=== PATIENT | female | born 1970 | race Caucasian/White ===

== ENCOUNTER 2016-07-07 05:32 | Day surgery (SDC) | payer OTHER ==
[~2016-07-07] VITALS: Ht 160 cm; Wt 94.6 kg
[2016-07-07] VITALS (7 sets, daily range): BP systolic 132–140; BP diastolic 74–90; PULSE 78–103; RESP 14–17; O2SAT 97–100
[~2016-07-07 05:32] MED LIST: ALPR0.5T8 PO; BUPR150T9 PO; METO50TA7 PO
[2016-07-07] MEDS ORDERED: EPHEDrine/NS 5 mg/mL 5 mL Syringe ONE (05:33)
[2016-07-07] MEDS ORDERED: Succinylcholine Chloride 20 mg/mL 5 mL Inj ONE (05:33)
[2016-07-07] MEDS ORDERED: Rocuronium 10 mg/mL 5 mL Inj ONE (05:33)
[2016-07-07] MEDS ORDERED: Propofol 10,000 mCg/mL 20 mL Inj ONE (05:33)
[2016-07-07] MEDS ORDERED: Lidocaine PF 1% 30 mL Inj ONE (05:33)
[2016-07-07] MEDS ORDERED: Dexamethasone 4 mg/mL Inj ONE (05:33)
[2016-07-07] MEDS ORDERED: Ondansetron 2 mg/mL 2 mL Inj ONE (05:33)
[2016-07-07] MEDS ORDERED: fentaNYL-PF 50 mCg/mL 2 mL Inj ONE (05:33)
[2016-07-07] MEDS: Lactated Ringer's 1,000 ML IV SCH ×2 (05:37→07:24)
[2016-07-07 06:32] LABS: BASOPHILS % (AUTO) 0.6 % (0-3); EOSINOPHILS % (AUTO) 3.3 % (0-5); MONOCYTES % (AUTO) 9.1 % (4-12); Mean Corpuscular Hemoglobin 28.9 pg (27.0-35.0); Mean Corpuscular Volume 88.8 fL (81-100); NEUTROPHILS % (AUTO) 52.7 % (40-74); Platelet Count 363 bil/L (150-400)
[2016-07-07] MEDS ORDERED: Bupivacaine-MPF 0.5% W/EPI 30 mL Inj INFILTRATE ONE (08:01)
--- NOTE | 2016-07-07 08:14 | PCM.HPANE ---
Patient Data Surgeon Admitting Provider: Attending Provider:Lyn Beckham MD Primary Care Physician:Rosa Boogie Other Provider:Hola Cotto Anesthesia Reason for Visit Family Planning Ht/WT & BMI Height (Feet): 5 Height (Inches): 3.00 Weight (Kilograms): 94.6 Body Mass Index 36.00 Allergies Coded Allergies: No Known Allergies (Unverified , 07/06/16) Past Anesthesia History Anesthesia History: Denies:: Abnormal Airway, Anesthesia Reactions, Difficult Intubation, Fam Anesthesia Reaction Diabetes History Hx Diabetes?: Yes MRSA MRSA: Yes (many years ago) Medications Hypertension Medication: Yes Home Meds Incl Beta Mita: Yes (metopropol 50mg) Date Beta Mita Taken: Jul 07, 2016 Time Beta Mita Taken: 0500 Reported Medications Bupropion HCl (Zyban)150 Mg Tablet.er150 Mg PO BID 07/06/16 Alprazolam 0.5 Mg Tablet0.5 Mg PO TID PRN For Anxiety Ref 0 07/06/16 Metoprolol Succinate ER (Toprol XL)50 Mg Pkgiig80 Mg PO DAILY Ref 0 07/06/16 History HEENT History: Denies:: Abnormal Airway Cataracts Difficult Intubation Dysphagia Glaucoma Hearing Problem Sinus Problem TMJ Cardiovascular History: Positive for:: Heart Murmur (since childhood) Hypertension Denies:: AICD Abdominal Aortic Aneurism Atrial Fibrillation Chest Pain Congestive Heart Failure Coronary Artery Disease Edema Pacemaker Peripheral Vascular Rheumatic Fever Thrombophlebitis Valvular Heart Disease Hx of Respiratory Problem?: No Respiratory History: Denies:: Asthma COPD Emphysema Oxygen Administration Pneumonia Tuberculosis Use of C-PAP Machine Hx Neurologic Problems?: No Neurological History: Denies:: Alzheimer's Disease CVA Dizziness Headaches Multiple Sclerosis Parkinson's Disease Seizures TIA Hx of GI Problems?: Yes Gastrointestinal History: Positive for:: Gall Bladder Disease (removed) Denies:: Cirrhosis Gastroesphageal Reflux Gastrointestinal Bleeding Heartburn Hepatitis Hiatal Hernia Liver Disease Hx of Problems?: No Genitourinary History: Denies:: Kidney Stones Urinary Tract Infection Female Hx: Denies:: Currently Problems with Breasts? Skin History: Denies:: History Skin Disorders? Pressure Ulcers Musculoskeletal History: Positive for:: Back Injury Denies:: Fibromyalgia Joint Replacement Musculoskeletal Trauma Myasthenia Gravis Osteoarthritis Rheumatoid Arthritis Hx of Psycho/Social Problems?: Yes Psycho Social History: Positive for:: Hx Depression Denies:: Anxiety Hx Surgeries?: Yes (jacinto, hernia, appe) Hx Any Other Health Problems?: Yes Other History: Denies:: Cancer Thyroid Disease History Blood Transfusions: Positive for:: Accept Blood Products? Denies:: Blood Transfusions Hx Diabetes: Yes Hx Alcohol Use: YesAlcoholic Drinks Per Day: a few times weeklyHx Substance Use: NoHave You Smoked inLast 12 mo: No Stop/Bang S-Snoring: Do You Snore Loudly: Yes T-Tired: feel tired, fatigued: Yes O-Obsered: Observed not breath: No P-Blood Pressure: treated: Yes B- Body Mass Index > 35 kg/m2: Yes A- Age over 50: No N- Neck Large Circumference: No G- Gender Male: No STEVE Total Score: 4 Risk Assessment Category Category 1A: Patient has history of documented sleep apnea, and HAS NOT received any narcotic, sedative or anesthesia administration during this stay. Category 1B: Patient has history of documented sleep apnea, and HAS received any narcotic , sedative or anesthesia administration during this stay Category 2: Patient has SUSPECTED Obstructive Sleep Apnea, and HAS received any narcotic , sedative or anesthesia administration during this stay. Category 3: Patient has SUSPECTED Obstructive Sleep Apnea and HAS NOT received narcotic, sedative or anesthesia administration during this stay. Category 4: Outpatient in Procedural Areas with known sleep apnea or who screen positive for High Risk via the STOP/BANG questionnaire. Exam Exam Vital Signs Vital Signs Date Time Temp Pulse Resp B/P Pulse Ox O2 Delivery O2 Flow Rate FiO2 07/07/16 05:58 36.3 78 16 134/89 97 Room Air General Appearance: Alert, Oriented X3 HEENT/AIRWAY: MP 2, Neck Movement (FROM) Lungs: Clear to Auscultation, Clear to Percussion Heart: Exam Unremarkable, Regular Rate/Rhythm Meds/Labs/Diagnostics Admission Meds Current Medications Lactated Ringer's (Lr) 1,000 ml @ 120 mls/hr Q8H20M IV Last administered on t 05:37; Start 07/07/16 at 05:00; Stop 07/07/16 at 13:19 Labs Test 07/07/16 06:00 White Blood Count 10.5th/mm3 (3.8-10.1) Red Blood Count 4.18mil/mm3 (3.90-5.20) Hemoglobin 12.1g/dL (12.0-15.6) Hematocrit 37.1% (35.0-46.0) Mean Corpuscular Volume 88.8fL (81-100) Mean Corpuscular Hemoglobin 28.9pg (27.0-35.0) Mean Corpuscular Hemoglobin Concent 32.6% (32.0-37.0) Red Cell Distribution Width 13.4% (12.3-15.4) Platelet Count 363bil/L (150-400) Neutrophils (%) (Auto) 52.7% (40-74) Lymphocytes (%) (Auto) 34.0% (14-46) Monocytes (%) (Auto) 9.1% (4-12) Eosinophils (%) (Auto) 3.3% (0-5) Basophils (%) (Auto) 0.6% (0-3) Plan Impression Patient chart reviewed, patient interviewed and anesthestic plan with risks, benefits, and alternatives discussed, and informed consent obtained. NPO Status: 07/06 at 2200 ASA Physical Status: ASA2 Mod Systemic Disease Anesthetic Plan: GA Bene/Risks/Altern/Consents: Yes HP Complete Prior to Induction: Yes Claude Car MD Jul 07, 2016 07:14
[2016-07-07] MEDS ORDERED: Labetalol 5 mg/mL 4 mL Inj IV PRN (08:15)
[2016-07-07] MEDS ORDERED: Ondansetron 2 mg/mL 2 mL Inj IVPUSH PRN ×2 (08:15→09:30)
[2016-07-07] MEDS ORDERED: fentaNYL-PF 50 mCg/mL 2 mL Inj IVPUSH PRN (08:15)
[2016-07-07] MEDS ORDERED: HYDROmorphone 1 mg/mL Inj IVPUSH PRN (08:15)
[2016-07-07] MEDS ORDERED: Lactated Ringer's 1,000 ML IV SCH (08:15)
[2016-07-07] MEDS ORDERED: MetoCLOpramide 5 mg/mL 2 mL Inj IVPUSH PRN ×2 (08:15→09:30)
[2016-07-07] MEDS ORDERED: Atropine 0.4 mg/mL Inj IVPUSH PRN (08:15)
[2016-07-07] MEDS ORDERED: EPHEDrine Sulfate 50 mg/mL Inj IVPUSH PRN (08:15)
[2016-07-07] MEDS ORDERED: Phenylephrine 10,000 mCg/mL Inj IVPUSH PRN (08:15)
[2016-07-07] MEDS ORDERED: Lactated Ringer's 500 ML IV PRN (08:15)
[2016-07-07] MEDS ORDERED: HYDROcodone-APAP 5-325 mg Tablet PO PRN ×2 (08:45→09:30)
--- NOTE | 2016-07-07 08:45 | PCM.DIGYN ---
Surgical Discharge Instruction Dates of Hospitalization Date of Hospital Admission 07/07/16 Providers Admitting Physician: Primary Care Physician: Rosa Boogie Attending Physician: Lyn Beckham MD Diagnosis at Time of Discharge Diagnosis at time of discharge laparoscopy BTL Post-operative diagnosis laparoscopy BTL Problems: Diet Discharge Diet: No restrictions Activity Discharge Activity-General: Try not to overdue Dressing and Incisional Care Hygiene: May shower, NO bathtub, hot tub or whirlpool Additional Instructions Discharge Instructions Please call office or go to ER if heavy vaginal bleeding, severe abdominal pain , foul smelling discharge, fever more than 100.4 Follow Up Plan Follow Up Plan follow up in office in 2 weeks Follow-up Provider (F9): Lyn Beckham MD Follow-up appointment: Weeks (2) Call your provider for: Fever, Chills, Shortness of breath, Heavy vaginal bleeding, Increasing pain Lyn Beckham MD Jul 07, 2016 08:45
--- NOTE | 2016-07-07 10:03 | PCM.ANEP1 ---
Post Anesthesia Phase 1 PACU Phase 1 Assessment Vital Signs Vital Signs Date Time Temp Pulse Resp B/P Pulse Ox O2 Delivery O2 Flow Rate FiO2 07/07/16 09:30 89 17 135/86 99 Room Air 07/07/16 09:00 90 15 140/87 98 Room Air 07/07/16 08:55 93 15 138/80 98 Room Air 07/07/16 08:50 94 14 132/78 99 Room Air 07/07/16 08:41 36.8 103 14 137/90 100 Simple Mask 10 07/07/16 05:58 36.3 78 16 134/89 97 Room Air Anesthetic Administered: GA Level of Alertness: Awake, talking MAN's with Equal Strength: Yes Pain: No Nausea or Vomiting: No Oxygen Delivery: Simple Mask Lungs: Clear to Auscultation, Clear to Percussion Claude Car MD Jul 07, 2016 10:03
--- NOTE | 2016-07-07 10:04 | PCM.ANEP2 ---
Post Anesthesia Evaluation ASA/CMS Post Anesthesia VS in Patient's Normal Range?: Yes Resp Stable; Airway Patent?: Yes CV Function & Hydration Stable: Yes Mental Status Recovered?: Yes Pain control Satisfactory?: Yes N/V Control Satisfactory?: Yes Claude Car MD Jul 07, 2016 10:04
--- NOTE | 2016-07-07 13:43 | OP ---
[address] [address] OPERATIVE REPORT PATIENT: JONATHON KOLB : 1970 MR#: [id number] ADMIT: 07/07/2016 JOB ID: [id number] DATE OF SURGERY: 07/07/2016 IDENTIFICATION: This is a 46-year-old female, strongly desires for permanent sterilization. She came in today for laparoscopy, BTL. SURGEON: Lyn Beckham MD. INSIDE SALES COORDINATOR: Yasir Jovel MD. PREOPERATIVE DIAGNOSIS(ES): A 46-year-old female, desire for permanent sterilization. POSTOPERATIVE DIAGNOSIS(ES): A 46-year-old female, desire for permanent sterilization. INDICATION OF THE PROCEDURE: A 46-year-old female, desire for permanent sterilization. The patient understood that there were reversible methods available. She understood this was a permanent procedure. On the other hand, she understood there is no 100% guarantee for protection from getting . She understood the risks of infection, bleeding, injury to the organs around the uterus including, but not limited to, the bladder, ureters, major vessels, nerves and bowel. Informed consent signed. For this procedure, DENTAL COORDINATOR assistance is necessary for exposure. The patient has a history of ruptured appendicitis and history of hernia repair with mesh placement. PROCEDURE: 1. Laparoscopy. 2. Bilateral tubal ligation. DESCRIPTION OF PROCEDURE: The patient was transferred to the operating room. After general anesthesia was noted to be adequate, she was placed in dorsal lithotomy position. She was prepared and draped in a normal sterile fashion. At this time, the speculum inserted into vagina to expose the cervix. The cervix was grasped by a single-toothed tenaculum, and the acorn manipulator was placed for manipulation. At this time, the patient was transferred to her abdomen. A Veress needle inserted into peritoneum and after confirmation of insertion, CO2 gas inserted to form pneumoperitoneum. At this time, the Veress needle removed. An 11 mm incision was placed at the umbilicus and a 10 mm scope was inserted. Pelvis and the abdominal cavity surveillance was done and noticed the uterus was mildly enlarged with fibroids on the right side of the uterus about 4-5 cm. Bilateral ovaries and tubes looked normal. No other abnormal finding. No significant adhesion was noticed during the procedure. The Filshie clip was placed on the right tube with direct visualization and confirmed proper placement. Then, the Filshie clip was placed on the left tube, and proper placement was confirmed. After placement, they both were about 2-3 cm close to the proximal side of the tube. Then, the instruments removed from her pelvis, from her abdomen. The CO2 gas reduced completely. The fascia was closed with 0 PDS suture, and the skin was closed with 4-0 Monocryl subcutaneously. Dermabond was placed above it. The patient tolerated the procedure well. All instrument, needles, laps and gauzes counted correct twice. The patient was transferred to the recovery room in a stable condition.
--- NOTE | 2016-07-07 13:54 | DIS ---
[address] [address] DISCHARGE SUMMARY PATIENT: JONATHON KOLB : 1970 MR#: [id number] ADMIT: 07/07/2016 JOB ID: [id number] DIS: 07/07/2016 This is a 46-year-old female. She came in today for a scheduled laparoscopic BTL. The procedure was not complicated. Patient doing well during procedure. PLAN: To discharge home after she recovered from surgery. Motrin 600 mg 30 pills prescribed for postop pain. The patient instructed that she will come back to office in two weeks for postop care and she is instructed that if there is heavy vaginal bleeding, severe abdominal pain, foul-smelling discharge, fever more than 100.4, she will need to call office and go to the ED for evaluation.
== END 2016-07-07 23:59 | disposition home or self-care (01) ==
LOC: SAS 05:32
PROVIDERS: ATTEND Obstetrics & Gynecology
DX: Z30.2 Encounter for sterilization (principal); I10 Essential (primary) hypertension; F32.9 Major depressive disorder, single episode, unspecified; Z79.899 Other long term (current) drug therapy; Z87.891 Personal history of nicotine dependence
CPT/HCPCS: 36415; 58670; 85025; J0330; J1100; J1885; J2250; J2405; J3010; J7120